=== PATIENT | female | born 1950 | race Caucasian/White ===

== ENCOUNTER 2021-10-14 07:17 | Day surgery (SDC) | payer OTHER ==
[2021-10-14 07:52] VITALS: BMI 24.3
[2021-10-14 08:02] VITALS: TEMP 97.3
[2021-10-14 08:15] LABS: Protime INR 0.85
[2021-10-14 08:38] LABS: Absolute Lymphocytes (CBC) 1.2 K/uL (0.7-4.9); Hematocrit 33.5 % (36.0-45.0); Lymphocytes % 37.2 % (15.3-44.8); MPV 9.5 fL (7.6-11.3); RBC Red Blood Cell Count 3.73 M/uL (3.86-4.86)
[2021-10-14] MEDS ORDERED: NA CHLORIDE 0.9% 500 ML ONE (08:38)
[2021-10-14] MEDS ORDERED: FENTANYL CITR 100 MCG/2 ML ONE (09:05)
[2021-10-14] MEDS ORDERED: MIDAZOLAM HCL 2 MG/2 ML INJ ONE (09:05)
[2021-10-14] MEDS ORDERED: NALOXONE 0.4 MG/ML VIAL ONE (09:06)
[2021-10-14] MEDS ORDERED: FLUMAZENIL 0.1 MG/ML (5 mL VIAL) IV ONE (09:06)
[2021-10-14 09:55] LABS: Blood Morphology Comment NOT SEEN (NOT SEEN); Platelet Estimate ADEQ
[2021-10-14 11:24] VITALS: BP 136/56; O2SAT 98
--- NOTE | 2021-10-14 11:57 | RAD REPORT ---
EXAM DESCRIPTION: CT - Bone Biopsy Deep - 10/14/2021 10:39 am CLINICAL HISTORY: bone marrow bx, anemia COMPARISON: No comparisons FINDINGS: Preoperative diagnosis: Anemia Post operative diagnosis: Same Conscious Sedation: 1 milligram Versed 50 microgram fentanyl. 30 minutes of [id number] time. Patient was continuously monitored by nursing staff. Contrast used: NONE Estimated blood loss: less than 5 mL Specimens: 10 mL bone marrow aspirate, core samples The patient was placed prone on the table and the right flank area was prepped and draped in the usua l sterile fashion. 1% lidocaine was infiltrated into the subcutaneous tissues for local anesthesia. U nder computed tomographic guidance, a 13 gauge needle was advanced into the right iliac bone. A bone marrow aspirate and core sample were obtained. Postprocedure imaging demonstrated no complications. Samples were given to pathology for analysis. Th e patient tolerated the procedure without immediate complication and transferred to the recovery room in stable condition. All CT scans are performed using dose optimization technique as appropriate and may include automated exposure control or mA/KV adjustment according to patient size. IMPRESSION: 1. Technically successful CT-guided bone marrow aspiration and core biopsy. 2. Conscious sedation was utilized.
[2021-10-14 13:39] LABS: Cytogenetics, Bone Marrow SENT
== END 2021-10-14 11:20 | disposition home or self-care (01) ==
LOC: DS 07:17
PROVIDERS: ATTEND Internal Medicine Medical Oncology
DX: D72.819 Decreased white blood cell count, unspecified (principal); D72.89 Other specified disorders of white blood cells; D69.6 Thrombocytopenia, unspecified; D64.9 Anemia, unspecified
CPT/HCPCS: 36415; 88313; 85610; 88305; 88311; 85730; 20225; J2250; J3010; J7040; J2310